=== PATIENT | male | born 1965 | race Caucasian/White ===

== ENCOUNTER → 2018-06-24 09:28 | Outpatient (CLI) | payer BC, SELFPAY ==
[2018-06-24 10:38] LABS: Cholesterol 149 mg/dL (140-199); HDL Cholesterol 51 mg/dL (40-60); LDL Cholesterol Calculated 84 mg/dL (<100); Triglycerides 72 mg/dL (35-150)
[2018-06-26 16:17] LABS: Hepatitis A Antibody IgM NONREACTIVE (NONREACTIVE); Hepatitis Acute Panel Interp 0.25 (NONREACTIVE); Hepatitis B Core Antibody IgM NONREACTIVE (NONREACTIVE); Hepatitis B Surface Antigen NONREACTIVE (NONREACTIVE); Hepatitis C Antibody NONREACTIVE
== END ==
PROVIDERS: PCP Physician Assistant; Visit Provider Dermatology
DX: Z79.899 Other long term (current) drug therapy (principal)
CPT/HCPCS: 36415; 80061; 80074

== ENCOUNTER → 2019-08-09 15:49 | Outpatient (CLI) | payer BC, SELFPAY ==
--- NOTE | 2019-08-09 | DI.RAD.S_ITS ---
PROCEDURE: XR CHEST 2V INDICATIONS: Abnormal results of pulmonary function studies TECHNIQUE: 2 views of the chest were acquired. COMPARISON: [facility], , CHEST 2 VIEW, 05/02/2013, 11:43. FINDINGS: Surgical changes and devices: None. Lungs and pleura: Minimal diffuse interstitial prominence with hyperaeration and mild flattening of the bilateral hemidiaphragms. Persistent blunting of the right costophrenic angle likely related to pleural thickening or scarring. No focal consolidation. No pneumothorax. Mediastinum: Mediastinal contours are normal. Heart size is normal. Bones and chest wall: No suspicious bony abnormalities. Soft tissues appear unremarkable. IMPRESSION: Chronic appearing interstitial prominence and hyperaeration which are again suggestive of chronic obstructive pulmonary physiology. Otherwise, no acute cardiopulmonary abnormalities. Dictated by: Teodoro Warner M.D. on 08/09/2019 at 21:55 Approved by: Teodoro Warner M.D. on 08/09/2019 at 21:57
== END ==
PROVIDERS: PCP Internal Medicine; Visit Provider Internal Medicine
DX: R94.2 Abnormal results of pulmonary function studies (principal)
CPT/HCPCS: 71046

== ENCOUNTER → 2019-09-03 09:37 | Outpatient (CLI) | payer BC, SELFPAY ==
--- NOTE | 2019-09-03 | DI.CT.S_ITS ---
PROCEDURE: CT CHEST HIGH RESOLUTION INDICATIONS: Interstitial pulmonary disease, unspecified TECHNIQUE: Noncontrast 1.0 and 5.0 mm thick contiguous axial sections from the pulmonary apex to the posterior costophrenic angles, with 7 mm thick coronal and sagittal MIP reformats. 1 mm thick dynamic expiratory images acquired through the upper, mid, and lower lungs. 1.0 mm thick axial sections acquired from the edvin to the posterior costophrenic angles in the prone end-inspiration position. For radiation dose reduction, the following was used: automated exposure control, adjustment of mA and/or kV according to patient size. COMPARISON: [facility], , XR CHEST 2V, 08/09/2019, 16:19. [facility], , CHEST 2 VIEW, 05/02/2013, 11:43. FINDINGS: Image quality: Excellent. Lungs: There is a pattern of mild interstitial prominence without alveolitis, at each lung base. Mild bronchial wall thickening is associated, indicating a component of chronic bronchitis. No bronchiectasis is seen. On expiratory examination no area of air trapping is found. Emphysematous change appears present, mild, centrilobular in type over the upper lobes. Pleura: No pleural effusions or pneumothorax. Mediastinum: Heart size is normal. No pericardial effusion. Thoracic aorta and central pulmonary arteries are normal in size. Esophagus is normal in caliber. Bones and chest wall: No suspicious bony lesions. No vertebral body compression fractures. Abdomen: Visualized upper abdominal solid organs and bowel loops appear normal. IMPRESSION: Nonspecific interstitial prominence, best seen within the middle and lower thirds of the lung parenchyma in the setting of mild centrilobular emphysema more superiorly. Alveolitis is not present, bronchiectasis is not seen, and mild chronic peribronchial soft tissue prominence is present consistent with bronchitis. This appearance may reflect prior smoking history. No acute disease is found. Dictated by: Mayito Tidwell M.D. on 09/03/2019 at 12:01 Approved by: Mayito Tidwell M.D. on 09/03/2019 at 13:04
== END ==
PROVIDERS: PCP Internal Medicine; Referring Provider Internal Medicine; Visit Provider Internal Medicine
DX: J84.9 Interstitial pulmonary disease, unspecified (principal); J43.2 Centrilobular emphysema
CPT/HCPCS: 71250

== ENCOUNTER → 2021-12-25 11:00 | Outpatient (CLI) | payer BC, SELFPAY ==
[2021-12-25 11:55] LABS: Hematocrit 41.1 % (41-53); Hemoglobin 14.2 g/dL (13.5-17.5); Mean Corpuscular HGB Conc 34.5 % (30-36); Mean Corpuscular Hemoglobin 31.5 PG (26-34); Mean Corpuscular Volume 91.3 fL (80-100); Platelet Count 211 X10^3/uL (150-400); Red Cell Distribution Width 13.3 % (11.6-14.8); White Blood Cell Count 4.3 X10^3/uL (4.5-11.0)
[2021-12-26 03:42] LABS: TSH w/ Reflex to FT4 1.21 uIU/mL (0.47-4.68)
[2021-12-26 04:18] LABS: HEMOLYSIS < 15 (0-50)
[2021-12-26 04:27] LABS: Alanine Aminotransferase 17 IU/L (<50); Albumin 3.9 g/dL (3.5-5.0); Albumin Globulin Ratio 1.4 (1.0-2.8); Alkaline Phosphatase 72 U/L (38-126); Aspartate Aminotransferase 22 IU/L (17-59); BUN Creatinine Ratio 16.1 (6-22); Bilirubin Total 0.5 mg/dL (0.2-1.3); Blood Urea Nitrogen 14 mg/dL (9-20); Calcium 8.5 mg/dL (8.4-10.2); Carbon Dioxide 31 mmol/L (22-32); Chloride 106 mmol/L (98-107); Cholesterol 172 mg/dL (140-199); Estimated Glomerular Filt Rate > 60 mL/min (>60); Globulin 2.8 g/dL (1.7-4.1); Glucose 101 mg/dL (70-100); HDL Cholesterol 53 mg/dL (40-60); LDL Cholesterol Calculated 109 mg/dL (<100); Potassium 4.5 mmol/L (3.4-5.1); Sodium 142 mmol/L (137-145); Total Protein 6.7 g/dL (6.3-8.2); Triglycerides 50 mg/dL (35-150)
[2021-12-27 15:10] LABS: Prostate Specific Antigen 0.908 ng/mL (0.10-4.00)
== END ==
PROVIDERS: PCP Internal Medicine; Referring Provider Internal Medicine; Visit Provider Internal Medicine
DX: Z00.00 Encounter for general adult medical examination without abnormal findings (principal); R19.7 Diarrhea, unspecified; F41.1 Generalized anxiety disorder
CPT/HCPCS: 36415; 80053; 80061; 84153; 84443; 85027

== ENCOUNTER → 2023-02-03 16:20 | Outpatient (CLI) | payer BC, SELFPAY ==
[2023-02-03 17:46] LABS: Cholesterol 204 mg/dL (140-199); Glucose 92 mg/dL (70-100); HDL Cholesterol 54 mg/dL (40-60); LDL Cholesterol Calculated 134 mg/dL (<100); Triglycerides 81 mg/dL (35-150)
[2023-02-03 18:15] LABS: Prostate Specific Antigen Scrn 1.44 ng/mL (0.1-4.0)
== END ==
PROVIDERS: PCP Internal Medicine; Referring Provider Internal Medicine; Visit Provider Internal Medicine
DX: Z00.00 Encounter for general adult medical examination without abnormal findings (principal); Z12.5 Encounter for screening for malignant neoplasm of prostate
CPT/HCPCS: 36415; 80061; 82947; G0103

== ENCOUNTER → 2024-02-16 07:19 | Outpatient (CLI) | payer BC, SELFPAY ==
[2024-02-16 08:57] LABS: Cholesterol 194 mg/dL (140-199); Glucose 108 mg/dL (70-100); HDL Cholesterol 62 mg/dL (40-60); LDL Cholesterol Calculated 117 mg/dL (<100); Triglycerides 77 mg/dL (35-150)
== END ==
PROVIDERS: PCP Internal Medicine; Referring Provider Internal Medicine; Visit Provider Internal Medicine
DX: Z00.00 Encounter for general adult medical examination without abnormal findings (principal); Z12.5 Encounter for screening for malignant neoplasm of prostate
CPT/HCPCS: 36415; 80061; 82947; G0103

== ENCOUNTER → 2025-06-18 12:00 | Outpatient (CLI) | payer BC, SELFPAY ==
[2025-06-18 12:46] LABS: Hemoglobin A1C% w Est Avg Glu 5.6 % (4.0-6.0)
[2025-06-18 12:53] LABS: Blood Urea Nitrogen 15 mg/dL (9-20); Calcium 9.3 mg/dL (8.4-10.2); Carbon Dioxide 28 mmol/L (22-32); Chloride 105 mmol/L (98-107); Cholesterol 199 mg/dL (140-199); Estimated Glomerular Filt Rate > 60 mL/min (>60); Glucose 112 mg/dL (70-99); HDL Cholesterol 74 mg/dL (40-60); HEMOLYSIS 21 (0-50); Potassium 4.3 mmol/L (3.4-5.1); Sodium 141 mmol/L (137-145); Triglycerides 74 mg/dL (35-150)
== END ==
PROVIDERS: PCP Internal Medicine; Referring Provider Internal Medicine; Visit Provider Internal Medicine
DX: Z12.5 Encounter for screening for malignant neoplasm of prostate (principal); R73.01 Impaired fasting glucose; E78.2 Mixed hyperlipidemia
CPT/HCPCS: 36415; 80048; 80061; 83036; 84450; G0103